=== PATIENT | female | born 1950 | race Two or more races ===

== ENCOUNTER 2019-05-22 09:30 | Outpatient (CLI) | payer OTHER | END 2019-05-22 11:18 | disposition home or self-care (01) | LOC: SONOGRAMA 09:30 | DX: E04.2 Nontoxic multinodular goiter (principal) ==

== ENCOUNTER 2025-09-18 08:00 | Day surgery (SDC) | payer OTHER ==
[2025-09-11 09:58] LABS: BASO % 0.6 % (0.1-1.2); EOS # 0.16 (0.04-0.54); EOS % 3.1 % (0.7-7.0); LYMPH # 1.81 (1.18-3.74); LYMPH % 34.6 % (19.3-53.1); MEAN PLATELET VOLUME 9.90 fl (9.4-12.4); MONO # 0.39 (0.24-0.82); MONO % 7.5 % (4.7-12.5); NEUT # 2.82 (1.56-6.13); NEUT % 53.8 % (34.0-71.1); RED CELL DISTRIBUTION WIDTH 13.1 % (11.6-14.4)
[2025-09-11 10:00] LABS: URINE APPEARANCE Clear; URINE BILIRRUBIN Negative (NEGATIVE); URINE BLOOD Negative; URINE COLOR Yellow; URINE GLUCOSE Negative (NEGATIVE); URINE KETONE Negative (NEGATIVE); URINE LEUKOCYTE Small; URINE NITRATE Negative; URINE PROTEIN 30 (NEGATIVE); URINE UROBILINOGEN 0.2 E.U./dl
[2025-09-11 10:05] LABS: URINE BACTERIA 564.9 uL (0.0-1933); URINE EPITHELIAL CELLS 10.7 uL (0.0-38.8); URINE RBC 4.1 uL (0.0-20.8); URINE WBC 25.4 uL (0.0-23.2)
[2025-09-11 10:15] VITALS: BP 152/84
[2025-09-11 10:28] LABS: URINE CAST 0.14 uL (0.0-1.40)
[2025-09-11 10:35] LABS: INR 0.99
[2025-09-11 11:05] LABS: ALT/SGPT 24.0 U/L (12-78); AST/SGOT 18.0 U/L (15-37); BILIRUBIN TOTAL 1.72 mg/dL (0.3-1.2); BUN CREA RATIO 23.0 (7.0-25.0); CREATININE SERUM 0.92 mg/dL (0.55-1.02); GFR 59.19; GLOBULINA 2.8 G/DL (2.4-3.5); GLUCOSE FASTING 87.0 mg/dL (65-100); OSMOLALITY SERUM 289.0 MOSM/KG (275-295)
[~2025-09-18] VITALS: Ht 149.9 cm; Wt 71.2 kg
[~2025-09-18 08:00] MED LIST: CARVEDILOL ER40 MG PO; ECOTRIN81 MG PO; HYDRODIURIL12.5 MG PO; LEVOTHYROXINE25 MCG; NORVASC2.5 M1; RESTORIL7.5 MG
[2025-09-18] MEDS ORDERED: CEFAZOLIN SODIUM 1,000 MG VIAL ONE (08:07)
[2025-09-18] MEDS ORDERED: CHLORHEXIDINE GLUCONATE 120 ML BOTTLE TOP ONE (09:34)
[2025-09-18] MEDS ORDERED: MACROBID 100 M100 MG PO (11:19)
[2025-09-18] MEDS ORDERED: TRAM1TAB98 PO (11:19)
== END 2025-09-18 14:55 | disposition home or self-care (01) ==
LOC: CIR.AMB 08:00
PROVIDERS: ATTEND Obstetrics & Gynecology Gynecology
DX: N88.8 Other specified noninflammatory disorders of cervix uteri (principal)